=== PATIENT | male | born 1990 | race Caucasian/White ===

== ENCOUNTER 2024-07-26 11:57 | Inpatient (IN) | payer OTHER ==
[~2024-07-26] VITALS: Ht 175.3 cm; Wt 85.0 kg
[~2024-07-26 11:57] MED LIST: CITA-144 PO; QUET100T PO; QUET200T PO
[2024-07-26 14:20] LABS: BASOPHILS % (AUTO) 0.4 % (0.0-2.0); EOSINOPHILS % (AUTO) 0.1 % (1.0-6.0); HEMATOCRIT 38.1 % (41-53); HEMOGLOBIN 12.7 g/dL (13.5-17.5); LYMPHOCYTES # (AUTO) 1.4 K/uL (1.0-4.8); LYMPHOCYTES % (AUTO) 20.3 % (22.0-44.0); MEAN CORPUSCULAR HEMOGLOBIN 30.6 pg (26.0-34.0); MEAN CORPUSCULAR HGB CONC 33.4 G/dL (31.0-37.0); MEAN CORPUSCULAR VOLUME 92 fL (80-100); MONOCYTES # (AUTO) 0.8 K/uL (0.1-1.0); MONOCYTES % (AUTO) 10.9 % (2.0-9.0); NEUTROPHILS # (AUTO) 4.8 K/uL (1.8-7.7); NEUTROPHILS % (AUTO) 68.3 % (40.0-70.0); PLATELET COUNT (AUTO) 161 K/uL (150-450); RED BLOOD CELL COUNT(AUTO) 4.16 MIL/uL (4.50-5.90); RED CELL DISTRIBUTION WIDTH 13.1 % (11.5-14.5); WHITE BLOOD COUNT (AUTO) 7.1 K/uL (4.5-11.0)
[2024-07-26 14:26] LABS: ANION GAP 8 mmol/L (8-16); CALCIUM, TOTAL 9.1 mg/dL (8.8-10.5); CARBON DIOXIDE 26 mmol/L (22-29); CHLORIDE 104 mmol/L (98-107); CREATININE 0.57 mg/dL (0.60-1.30); GLOMERULAR FILTR. RATE CALC > 60 mL/min (>60); GLUCOSE,RANDOM 98 mg/dL (70-110); POTASSIUM 3.5 mmol/L (3.5-5.1); SODIUM SERUM 138 mmol/L (136-145); UREA NITROGEN, BLOOD 12 mg/dL (7-18)
[2024-07-26 14:54] LABS: ALCOHOL, BLOOD (SERUM) < 3 mg/dL (0-10)
[2024-07-26] MEDS ORDERED: BACLOFEN 10 MG TABLET PO PRN (15:30)
[2024-07-26] MEDS ORDERED: IBUPROFEN 600 MG TABLET PO PRN (15:30)
[2024-07-26] MEDS ORDERED: LOPERAMIDE HCL 2 MG/15 ML SUSPENSION UDCUP PO PRN (15:30)
[2024-07-26] MEDS ORDERED: MAG HYDROX/ALUMINUM HYD/SIMETH ES 30 ML SUSPENSION UDCUP PO PRN (15:30)
[2024-07-26] MEDS ORDERED: HydrOXYzine PAMOATE 50 MG CAPSULE PO PRN (15:30)
[2024-07-26] MEDS ORDERED: IPRATROPIUM BROMIDE 0.5 MG/2.5 ML NEB SOLUTION NEB PRN (15:30)
[2024-07-26] MEDS ORDERED: TraZODone HCL 50 MG TABLET PO PRN (15:30)
[2024-07-26] MEDS ORDERED: CloNIDine HCL 0.1 MG TABLET PO PRN (15:30)
[2024-07-26] MEDS ORDERED: LORazepam 1 MG TABLET PO PRN (15:30)
[2024-07-26] MEDS ORDERED: PROMETHAZINE HCL 25 MG TABLET PO PRN (15:30)
[2024-07-26] MEDS ORDERED: ALBUTEROL SULFATE 2.5 MG/0.5 ML NEB SOLUTION NEB PRN (15:30)
[2024-07-26] MEDS: SODIUM CHLORIDE 0.45% 1,000 ML IV SCH (15:30)
[2024-07-26] MEDS ORDERED: ZOLPIDEM TARTRATE 5 MG TABLET PO PRN (15:30)
[2024-07-26] MEDS ORDERED: ONDANSETRON HCL 4 MG/2 ML VIAL IVP PRN (15:30)
[2024-07-26] MEDS ORDERED: DICYCLOMINE HCL 10 MG CAPSULE PO PRN (15:30)
[2024-07-26] MEDS ORDERED: BISACODYL 10 MG RECTAL RECTAL SUPPOSITORY PR PRN (15:30)
[2024-07-26] MEDS ORDERED: ACETAMINOPHEN 325 MG TABLET PO PRN ×2 (15:30)
[2024-07-26] MEDS ORDERED: MAGNESIUM HYDROXIDE SUSPENSION 30 ML UDCUP PO PRN (15:30)
[2024-07-26] MEDS: HEPARIN SODIUM,PORCINE 5,000 UNITS/ML VIAL SQ SCH (15:44)
[2024-07-26 18:14] VITALS: BP 124/89; PULSE 77; RESP 19; TEMP 98.1; O2SAT 99
[2024-07-26 18:16] VITALS: BP 124/89; PULSE 77; RESP 19; TEMP 98.1; O2SAT 99
[2024-07-26 21:20] LABS: PH,URINE DRUG SCREEN 6.5 (5.0-8.0)
[2024-07-26 21:25] LABS: ALCOHOL, URINE DRUG SCREEN NEGATIVE (NEGATIVE); AMPHET/METH SCREEN,URINE POSITIVE (NEGATIVE); BARBITURATE SCREEN, URINE NEGATIVE (NEGATIVE); BENZODIAZEPINES SCREEN,URINE NEGATIVE (NEGATIVE); CANNABINOID SCREEN,URINE NEGATIVE (NEGATIVE); COCAINE SCREEN,URINE NEGATIVE (NEGATIVE); METHADONE SCREEN, URINE NEGATIVE (NEGATIVE); OPIATE SCREEN,URINE NEGATIVE (NEGATIVE); PHENCYCLIDINE SCREEN,URINE NEGATIVE (NEGATIVE)
[2024-07-27 05:14] VITALS: BP 124/79; PULSE 59; RESP 18; TEMP 97.7; O2SAT 98
[2024-07-27 08:05] VITALS: BP 112/79; PULSE 65; RESP 18; TEMP 97.2; O2SAT 100
[2024-07-27] MEDS: PANTOPRAZOLE SODIUM 40 MG DR TABLET PO SCH (09:04)
[2024-07-27 15:42] VITALS: BP 112/79; PULSE 67; RESP 18; TEMP 98.1; O2SAT 98
[2024-07-27 20:16] VITALS: BP 102/73; PULSE 82; RESP 18; TEMP 97.7; O2SAT 96
[2024-07-28 04:08] VITALS: BP 109/82; PULSE 61; RESP 18; TEMP 97.7; O2SAT 99
[2024-07-28 08:25] VITALS: BP 114/77; PULSE 60; RESP 18; TEMP 97.5; O2SAT 100
[2024-07-28 13:36] VITALS: BP 102/63; PULSE 88; RESP 18; TEMP 98.1; O2SAT 98
[2024-07-28 13:37] VITALS: BP 102/63; PULSE 88; RESP 18; TEMP 98.1; O2SAT 98
[2024-07-28 13:59] VITALS: BP 102/63; PULSE 88; RESP 18; TEMP 98.1; O2SAT 98
== END 2024-07-28 13:00 | disposition home or self-care (01) | DRG 897 ==
LOC: EMS 12:46 → EDH 16:58 → 6S 18:20 → 6N 07-27 20:33
PROVIDERS: ADMIT Hospitalist; ATTEND Hospitalist
DX: F15.10 Other stimulant abuse, uncomplicated (principal); D64.9 Anemia, unspecified; F32.A Depression, unspecified; F20.9 Schizophrenia, unspecified; Z88.0 Allergy status to penicillin; Z79.899 Other long term (current) drug therapy
CPT/HCPCS: 80048; 80307; 85025; 99285; G0480; J1644